=== PATIENT | male | born 1985 | race Two or more races ===

== ENCOUNTER 2021-11-15 11:26 | Emergency (ER) | payer OTHER ==
[~2021-11-15] VITALS: Ht 182.9 cm; Wt 95.3 kg
== END 2021-11-15 15:54 | disposition home or self-care (01) ==
LOC: ER 11:26
DX: S62.611B Displaced fracture of proximal phalanx of left index finger, initial encounter for open fracture (principal); X58.XXXA Exposure to other specified factors, initial encounter; Y93.89 Activity, other specified; Y92.89 Other specified places as the place of occurrence of the external cause; Y99.9 Unspecified external cause status; Z88.0 Allergy status to penicillin